=== PATIENT | male | born 1990 | race Caucasian/White ===

== ENCOUNTER 2021-01-02 12:44 | Emergency (ER) | payer SELFPAY ==
[2021-01-02 13:45] VITALS: BP 126/89; PULSE 76; RESP 16; TEMP 36.7; O2SAT 99; BMI 23.3
[2021-01-02 14:30] VITALS: BP 126/89; PULSE 76; RESP 16; TEMP 36.7; O2SAT 99
--- NOTE | 2021-01-02 14:37 | HMH.EDUTC ---
[facility] [place] Imp[place]: Left conjunctivitis Qualifiers: Conjunctivitis type: unspecified Qualified Code(s): H10.9 - Unspecified conjunctivitis Disposition: Home, Self-Care Condition on Discharge: Good Instructions: How to Instill Eye Drops, DI for Conjunctivitis Additional Instructions: Use the eye drops as directed. Strict hand washing in the house hold, because conjunctivitis is very contagious. Follow up with your regular doctor. GO TO THE ER FOR ANY WORSENING SYMPTOMS OR CONCERNS Prescriptions: Sulfacetamide Sodium [Bleph-10] 1 drp EYE-LEFT Q3H 7 Days #1 ml Referrals: Provider,Referral, [Primary Care Provider] - Forms: Work/School Release Time of Disposition: 14:47 Medical Decision Making - Medical Records Medical records reviewed: No: I reviewed the patient's medical records. - Arpan Inquiry Pt receiving controlled substance: No Vital Signs: 01/02/21 13:45 01/02/21 14:30 Temperature 98.1 F 98.1 F Temperature Source Oral Pulse Rate 76 Pulse Rate [Right Brachial] 76 Respiratory Rate 16 16 Blood Pressure 126/89 Blood Pressure [Right Arm] 126/89 Blood Pressure Mean [Right Arm] 101 Blood Pressure Source [Right Arm] Automatic Cuff Blood Pressure Position [Right Arm] Sitting 02 Sat by Pulse Oximetry 99 Oxygen Delivery Method [place] [facility] [place] - General Stated complaint: possible pink eye Time Seen by Provider: 01/02/21 14:38 Mode of Arrival: Ambulatory Source of Information: Patient Limitations: No Limitations Description of Symptoms (Recalled from Triage Doc. by RN): PATIENT C/O POSSIBLE PINK EYE HEENT Symptoms (Recalled from RN notes): No Resp Symptoms (Recalled from RN notes): No Skin Symptoms (Recalled from RN notes): No MS Symptoms (Recalled from RN notes): Yes Functional Status (Recalled from RN notes): WNL - History of Present Illness Provider Complaint: He states that he has had left eye irritation since yesterday. His eye was matted together when he woke up this morning. He denies any possible injury. He denies foreign body sensation. He thinks that he has pink eye. His vision is normal in both eyes. - Related Data Previous Rx's Medication Instructions Recorded Sulfacetamide Sodium [Bleph-10] 1 drp EYE-LEFT Q3H 7 Days #1 ml 01/02/21 Allergies Allergy/AdvReac Type Severity Reaction Status Date / Time INGREDIENT: NO KNOWN - NO Allergy Unknown Uncoded 02/26/17 14:50 KNOWN DRUG ALLERGY - Worker's Comp Is this a Worker's Comp case?: No [facility] History - Hepatitis A Screen Drug use history?: No High risk sexual behaviors?: No History of sexually transmitted infection?: No Currently employed?: No Childcare worker?: No Do you have indoor plumbing?: Yes Do you have electricity?: Yes Attestation statement:: This patient has been screened for Hepatitis A risk factors. I have reviewed the patient's past medical history: Yes ROS Obtained: Yes All systems reviewed & no additional complaints - Constitutional Constitutional: Denies chills, Denies fever(s) - Eyes Eyes: Reports as per HPI - ENT Ears, Nose, Mouth, and Throat: Denies dizziness, Denies otalgia, Denies sore throat Physical Exam - General General appearance: alert, in no apparent distress - Head Head exam: atraumatic, normocephalic, normal inspection - Eye Eye exam: Present: PERRL, EOMI - Expanded Eye Exam Eyelids: left: erythema, right: normal inspection Pupils: Bilateral: regular, round, reactive, size (3), size (3) Sclera/Conjunctival: left: injection, exudate, right: normal inspection - ENT ENT exam: Present: normal exam, normal oropharynx, mucous membranes moist, TM's normal bilaterally, normal external ear exam - Neck Neck exam: Present: normal inspection, full ROM, trachea midline. Absent: meningismus, lymphadenopathy - Chest Chest inspection: Present: normal inspection, symmetric chest wall rise. Absent: tenderness - Respiratory
== END 2021-01-02 15:01 | disposition home or self-care (01) ==
PROVIDERS: Emergency Provider Nurse Practitioner Family
DX: H10.32 Unspecified acute conjunctivitis, left eye (principal)
CPT/HCPCS: 99202; G0463